=== PATIENT | female | born 1955 | race Caucasian/White ===

== ENCOUNTER → 2019-01-20 | Outpatient (CLI) | payer OTHER ==
--- NOTE | 2019-01-20 12:08 | PN ---
Date/Time of Note Date/Time of Note DATE: 01/20/19 TIME: 12:03 Assessment/Plan VTE Prophylaxis Pharmacological prophylaxis: other Assessment/Plan Assessment/Plan 63-year-old female with right knee osteoarthritis. The pain is chronic. She has tried physical therapy and PRP injections without relief. Other options including quadriceps strengthening, knee brace and Monovisc injections were disc ussed. There is no indication for surgical treatment. The patient inquired about stem cell injections and I would encourage her to try hyaluronic acid before stem cells. The left shoulder pain is related to impingement syndrome and will respond to physical therapy. A prescription was written and the patient will follow-up in a few weeks. Subjective 24 Hr Interval Summary Free Text/Dictation Bethanie is a 63-year-old female who is here for evaluation of right knee pain and left shoulder pain. The right knee pain is more long-standing and a major concern. The patient has been evaluated and treated for her right knee pain for about 1-1/2 years. She has not found relief with physical therapy and PRP injections. She had an MRI of her right knee in the past and is here for further evaluation and management. The left shoulder pain is more recent and increases with overhead activities. The pain is sharp and located on the anterior and lateral aspects of the shoulder. There is no radiation, tingling or numbness. There is no history of trauma to the left shoulder or right knee. No specific treatment has been tried for the left shoulder Additional Comments Past history is significant for left foot surgery in 2017. The right knee pain started after the patient had left foot surgery. Medications estrogen and progesterone. Allergies to penicillin. Review of systems is negative for major medical issues Exam/Review of Systems Exam Vitals Vital signs show temperature of 98.4, pulse rate 76, respiration 10 and blood pressure 124/74 Exam Examination shows a pleasant female. She is awake alert and oriented. The right knee shows no swelling. There is medial joint line tenderness. Range of motion is 0-120. Mild clicking of the left knee is noted. This appears to be patellofemoral crepitus. There is no instability and no neurovascular deficit. Examination of the left shoulder shows subacromial tenderness. Impingement is positive. Range of motion is terminally restricted. There is no instability and no neurovascular deficit. Strength is 5/5. X-rays of the right knee and comparison views of the left knee were done today and show mild osteoarthritis of the right knee involving the medial and patellofemoral compartments. X-rays of the left shoulder were done and appear to be normal with no evidence of arthritis or fracture MEDINA GARCIA Jan 20, 2019 12:08
--- NOTE | 2019-01-21 09:30 | RADRPT ---
PROCEDURE: Bilateral knee x-ray CLINICAL INDICATION: Pain TECHNIQUE: AP, lateral and sunrise views of the bilateral knees were obtained. COMPARISON: None FINDINGS: Right knee: There is normal mineralization. No acute fracture or dislocation is seen. There is no joint effusion. There are no significant degenerative changes. There is no significant soft tissue swelling. Left knee: There is normal mineralization. No acute fracture or dislocation is seen. There is no joint effusion. There are no significant degenerative changes. There is no significant soft tissue swelling. IMPRESSION: Normal x-ray of the bilateral knees. [facility] Physician Osman Date Time Electronically viewed and signed by Physician Osman on 01/21/2019 09:29 CS/
--- NOTE | 2019-01-21 09:31 | RADRPT ---
PROCEDURE: XR left shoulder. CLINICAL INDICATION: Pain TECHNIQUE: AP Internal and external rotation and transscapular views of the left shoulder were perf ormed. COMPARISON: None. FINDINGS: There is normal osseous mineralization and alignment. No acute fracture or osseous lesion is identified. . Old clavicular fracture is seen. There are normal joints without evidence of arthritis or dislocation. The soft tissues are unremarkable. IMPRESSION: No acute osseous abnormality. Old clavicular fracture. [facility] Physician Osman Date Time Electronically viewed and signed by Physician Osman on 01/21/2019 09:31 /
== END | disposition home or self-care (01) ==
LOC: HKI 09:27
PROVIDERS: ATTEND Orthopaedic Surgery
DX: M17.11 Unilateral primary osteoarthritis, right knee (principal); M25.512 Pain in left shoulder
CPT/HCPCS: 73030; 73562; G0463